=== PATIENT | male | born 1965 | race Caucasian/White ===

== ENCOUNTER 2019-07-16 09:35 | Day surgery (SDC) | payer MEDICARE, OTHER ==
[2019-06-26 11:13] LABS: HEMATOCRIT 39.5 % (37.9-51.0); HEMOGLOBIN 13.5 g/dL (13.5-17.0); MEAN CORPUSCULAR HEMOGLOBIN 28.7 pg (27.0-33.4); MEAN CORPUSCULAR HGB CONC 34.3 g/dL (32.0-36.0); MEAN CORPUSCULAR VOLUME 84 fl (80-97); PLATELET COUNT 266 10^3/uL (150-450); RED BLOOD COUNT 4.72 10^6/uL (4.35-5.55); RED CELL DISTRIBUTION WIDTH 13.6 % (11.5-14.0); WHITE BLOOD COUNT 6.5 10^3/uL (4.0-10.5)
[2019-06-26 11:15] LABS: APPEARANCE,URINE CLEAR; BILIRUBIN,URINE NEGATIVE (NEGATIVE); COLOR,URINE YELLOW; GLUCOSE, URINE NEGATIVE (NEGATIVE); KETONES,URINE NEGATIVE (NEGATIVE); LEUKOCYTE ESTERASE,URINE NEGATIVE (NEGATIVE); NITRITE,URINE NEGATIVE (NEGATIVE); PROTEIN,URINE NEGATIVE (NEGATIVE); UROBILINOGEN,URINE NEGATIVE mg/dL (<2.0)
[2019-06-26 11:20] LABS: INTERNATIONAL RATION (INR) 1.01; PROTHROMBIN TIME 13.3 SEC (11.4-15.4)
[2019-06-26 11:21] LABS: PARTIAL THROMBOPLASTIN TIME 29.7 SEC (23.5-35.8)
--- NOTE | 2019-06-26 11:37 | RADIOLOGY REPORT (SQ) ---
EXAM DESCRIPTION: CHEST PA/LATERAL COMPLETED DATE/TIME: 06/26/2019 10:44 am REASON FOR STUDY: PRE-OP COMPARISON: 05/04/2011 EXAM PARAMETERS: NUMBER OF VIEWS: two views TECHNIQUE: Digital Frontal and Lateral radiographic views of the chest acquired. RADIATION DOSE: NA LIMITATIONS: none FINDINGS: LUNGS AND PLEURA: No opacities, masses or pneumothorax. No pleural effusion. MEDIASTINUM AND HILAR STRUCTURES: No masses or contour abnormalities. HEART AND VASCULAR STRUCTURES: Heart normal size. No evidence for failure. BONES: No acute findings. HARDWARE: Cervical fusion hardware. OTHER: No other significant finding. IMPRESSION: No evidence of acute cardiopulmonary process. TECHNICAL DOCUMENTATION: JOB ID: [id number] [employer]- All Rights Reserved Reading location - IP/workstation name: [email or web address]
--- NOTE | 2019-06-26 12:42 | EKG REPORT ---
SEVERITY:- NORMAL ECG - SINUS RHYTHM : Confirmed by: Renzo Mcdonald MD 26-Jun-2019 12:41:18
[~2019-07-16 09:35] MED LIST: CEFAZOLIN SODIUM 1 GM in DEXTROSE 5%-WATER 50 ML IV PRN; LACTATED RINGERS 1000 ML IV PRN; LIDOCAINE 0.5% INJ-PF (5 MG/ML) 50 ML SDV SUBCUT PRN; RINGERS SOLUTION,LACTATED 1,000 ML IV PRN
[2019-07-16] MEDS ORDERED: LIDOCAINE 1% INJ-PF (10 MG/ML) 30 ML SDV ONE (10:52)
[2019-07-16] MEDS ORDERED: LIDOCAINE 1%/EPINEPHRINE INJ 20 ML VIAL ONE (10:52)
[2019-07-16] MEDS ORDERED: BUPIVACAINE HCL 0.5 % INJ/PF 30 ML SDV ONE (10:52)
[2019-07-16] MEDS ORDERED: SODIUM BICARBONATE 4.2% INJ (2.5 MEQ/5 ML) VIAL ONE (10:52)
[2019-07-16] MEDS ORDERED: KETAMINE HCL INJ 500 MG/10 ML VIAL ONE (12:16)
[2019-07-16] MEDS ORDERED: HYDROMORPHONE HCL INJ/PF 2 MG/ML AMPULE ONE (12:16)
[2019-07-16] MEDS ORDERED: MIDAZOLAM 2 MG/2 ML INJ ONE (12:17)
[2019-07-16] MEDS ORDERED: PROPOFOL INJ 200 MG/20 ML VIAL IV ONE (12:17)
[2019-07-16] MEDS ORDERED: DEXMEDETOMIDINE INJ 80 MCG/20 ML VIAL IV ONE (12:17)
[2019-07-16] MEDS ORDERED: CEFAZOLIN INJ 1 GM VIAL ONE ×2 (12:55→14:38)
[2019-07-16] MEDS ORDERED: PHENYLEPHRINE HCL INJ/PF 10 MG/1 ML SDV ONE (13:00)
[2019-07-16] MEDS ORDERED: DIPHENHYDRAMINE HCL 50 MG/ML VIAL IV PRN (13:15)
[2019-07-16] MEDS ORDERED: PROMETHAZINE HCL INJ 25 MG/1 ML VIAL IV PRN ×2 (13:15)
[2019-07-16] MEDS ORDERED: FENTANYL CITRATE INJ/PF 100 MCG/2 ML AMPUL IV PRN ×3 (13:15)
[2019-07-16] MEDS ORDERED: MEPERIDINE HCL/PF INJ 25 MG/1 ML DISP.SYRIN IV PRN (13:15)
--- NOTE | 2019-07-16 14:21 | Operative Report ---
Operative Report DATE OF SURGERY: 07/16/19 PREOPERATIVE DIAGNOSIS: Cervical radiculopathy POSTOPERATIVE DIAGNOSIS: Same OPERATION: 1. Implantation of dual electrode spinal cord stimulator leads. 2. implantation of implantable pulse generator with pocket creation. 3. programming of spinal cord stimulator SURGEON: BILL MCNULTY PROGRAM/MUSIC DIRECTOR: NONA PEDERSEN ANESTHESIA: LMAC TISSUE REMOVED OR ALTERED: None COMPLICATIONS: None ESTIMATED BLOOD LOSS: 10 mL INTRAOPERATIVE FINDINGS: Electrodes leads placed from the top of C2 to bottom of C3 PROCEDURE: Date of Surgery: July 16, 2019 Preoperative Diagnosis: Cervical Radiculitis Postoperative Diagnosis:Same Procedure: SCS Electrode Placement with Impulse Generator Surgeon: Bill Bowden MD Sports Marketing Coordinator:Nona Pedersen MD Anesthesia: MAC Complications: None Procedure Detail: After obtaining informed consent and advising the patient of the risks and benefits, including serious neurological injury, bleeding and infection, allergic reaction and , the patient was taken to the operating room. After discussion with the patient, a suitable site was marked for the impulse generator pocket. The patient was then placed comfortably in the prone position. Comfort was assessed visually and verbally. The patient was then prepped with chlorhexidine with a suitable drying time prior to drapping. The patient was evaluated under fluoroscopy in the AP view. An adequate space was found at T4/5 and a midline incision site was marked to allow needle entry. The skin overlying both the midline and IPG sites were anesthetized with 1% lidocaine with bicarbonate, followed by bupivacaine 0.25% with epinephrine. Beginning at the midline incision, Sharp and blunt dissection were performed down to the underlying fascia. Using a left paramedian approach, a 14 gauge Tuohy needle was placed in the epidural space at T4-5 using a loss or resistance to saline technique. A second needle using a right paramedian approach was placed in the epidural space in the same manner. An electrode was inserted through each needle and advanced under serial fluoroscopy views to the top of C2 on the right and left. After placement, lateral imaging was obtained for appropriate posterior position in the epidural space. The leads were then tested and appropriate stimulation was found after discussion with the patient. The leads were then secured using pursetrings with 0-Mersiline with anchors in place. The anchors were then sututred in place. The needles were remove sequentially under fluoroscopic guidance. The anchors and pursestrings were secured. While lead positioning was occurring, Dr. Pedersen was assisting creating the p ocket for the pulse generator. As soon as the pocket was made, proper hemostasis was confirmed. The skin between the midline and IPG pocket was then anesthetized with 1% lidocaine. A tunneling tool was then utilized to bring the midline electrodes to the IPG pocket. Both sites were then inspected with appropriate hemostasis. The wires were easily placed in the midline, stitched to the pocket, connected to the pulse generator which was then tested with appropriate communication. All connections were then secured and confirmed. The generator was connected to the electrodes. All hex nuts were secured. The generator was placed in the pocket and impedance was tested and was felt to be satisfactory. Good connectivity with the new generator was obtained. The wounds were then copiously irrigated with Betadine containing irrigation solution. The sites were then closed with interrupted vertical mattress sutures with 2-0 Polysorb. The skin came together nicely. The midline incision was further closed with 4-0 Vicryl running suture. The region was cleansed again followed by placement of dermabond tape and cement. When this was dry, suitable tegaderm sponge dressings were placed. The patient was then taken back to PACU for postoperative care and monitoring.
--- NOTE | 2019-07-16 14:56 | RADIOLOGY REPORT (SQ) ---
EXAM DESCRIPTION: NO CHG FLUORO; CERV SP 3 VIEW OR LESS COMPLETED DATE/TIME: 07/16/2019 2:23 pm REASON FOR STUDY: SPINAL STIMULATOR PLCMT ASST WITH FLUORO IN OR G89.4 CHRONIC PAIN SYNDROME M96.1 POSTLAMINECTOMY SYNDROME, NOT ELSEWHERE CLASSIFIED M54.12 RADICULOPATHY, CERVICAL REGION COMPARISON: None. FLUOROSCOPY TIME: 6.1 minutes 17 Images saved to PACS TECHNIQUE: Intra-operative images acquired during surgical procedure to evaluate progress. NUMBER OF IMAGES: 17 LIMITATIONS: None. FINDINGS: Limited intraoperative fluoroscopic images obtained to evaluate progress. Please see oper ative report for detailed description. IMPRESSION: IMAGE(S) OBTAINED DURING PROCEDURE. COMMENT: Quality ID [id number]: Final reports for procedures using fluoroscopy that document radiation exp osure indices, or exposure time and number of fluorographic images (if radiation exposure indices are not available) Please consult full operative report of the attending physician for description of the procedure. TECHNICAL DOCUMENTATION: JOB ID: [id number] [employer]- All Rights Reserved Reading location - IP/workstation name: [email or web address]
--- NOTE | 2019-07-16 14:56 | RADIOLOGY REPORT (SQ) ---
EXAM DESCRIPTION: NO CHG FLUORO; CERV SP 3 VIEW OR LESS COMPLETED DATE/TIME: 07/16/2019 2:23 pm REASON FOR STUDY: SPINAL STIMULATOR PLCMT ASST WITH FLUORO IN OR G89.4 CHRONIC PAIN SYNDROME M96.1 POSTLAMINECTOMY SYNDROME, NOT ELSEWHERE CLASSIFIED M54.12 RADICULOPATHY, CERVICAL REGION COMPARISON: None. FLUOROSCOPY TIME: 6.1 minutes 17 Images saved to PACS TECHNIQUE: Intra-operative images acquired during surgical procedure to evaluate progress. NUMBER OF IMAGES: 17 LIMITATIONS: None. FINDINGS: Limited intraoperative fluoroscopic images obtained to evaluate progress. Please see oper ative report for detailed description. IMPRESSION: IMAGE(S) OBTAINED DURING PROCEDURE. COMMENT: Quality ID [id number]: Final reports for procedures using fluoroscopy that document radiation exp osure indices, or exposure time and number of fluorographic images (if radiation exposure indices are not available) Please consult full operative report of the attending physician for description of the procedure. TECHNICAL DOCUMENTATION: JOB ID: [id number] [employer]- All Rights Reserved Reading location - IP/workstation name: [email or web address]
[2019-07-16] MEDS ORDERED: OXYCODONE HCL IR 5 MG TABLET PO PRN (15:04)
[2019-07-16] MEDS ORDERED: ONDANSETRON HCL INJ/PF 4 MG/2 ML SDV IV PRN (15:05)
[2019-07-16 17:30] VITALS: BP 107/62
== END 2019-07-16 16:30 | disposition home or self-care (01) ==
LOC: OROUT 09:35
PROVIDERS: ATTEND Pain Medicine Interventional Pain Medicine
DX: G89.4 Chronic pain syndrome (principal); M96.1 Postlaminectomy syndrome, not elsewhere classified; M54.12 Radiculopathy, cervical region; Z79.01 Long term (current) use of anticoagulants; Z79.899 Other long term (current) drug therapy; Z51.81 Encounter for therapeutic drug level monitoring; M50.322 Other cervical disc degeneration at C5-C6 level; Z79.891 Long term (current) use of opiate analgesic
CPT/HCPCS: 93005; 36415; 85027; 85610; 85730; 81001; 72040; 71046; 93010; 00300; 63685; 63650; C1778; C1820 ×2; C1713; J3490 ×5; J0690; J1170; J2370; J7060; J2704; 300; J2250